=== PATIENT | male | born 2000 | race Two or more races ===

== ENCOUNTER 2019-10-02 19:54 | Emergency (ER) | payer SELFPAY ==
[~2019-10-02] VITALS: Ht 177.8 cm; Wt 95.3 kg
[2019-10-02 22:22] VITALS: BP 156/85
== END 2019-10-02 22:40 | disposition home or self-care (01) ==
LOC: ER 19:54
DX: L02.415 Cutaneous abscess of right lower limb (principal); L03.115 Cellulitis of right lower limb